=== PATIENT | male | born 1970 | race Asian ===

== ENCOUNTER 2018-12-16 19:13 | Emergency (ER) | payer SELFPAY ==
[~2018-12-16] VITALS: Ht 165.1 cm; Wt 72.0 kg
[2018-12-16 19:26] VITALS: BP 140/90; PULSE 89; RESP 18; Ht 165.1 cm; Wt 72.0 kg
== END 2018-12-16 21:10 | disposition left against medical advice (07) ==
LOC: FTE 19:13 → E/R 21:10
DX: Z53.21 Procedure and treatment not carried out due to patient leaving prior to being seen by health care provider (principal)